=== PATIENT | male | born 1985 | race Two or more races ===

== ENCOUNTER 2021-07-01 23:45 | Emergency (ER) | payer SELFPAY ==
[~2021-07-01] VITALS: Ht 172.7 cm; Wt 99.8 kg
--- NOTE | 2021-07-01 23:55 | NUR ---
Patient discharged to care home in stable condition. Written and verbal after care instructions given. Patient verbalizes understanding of instruction.
[2021-07-01 23:56] VITALS: BP 135/70
== END 2021-07-02 00:02 ==
LOC: ER 23:50